=== PATIENT | male | born 1930 | race Caucasian/White ===

== ENCOUNTER → 2016-11-04 | Outpatient (CLI) | payer MEDICARE, OTHER ==
[~2016-11-04] MED LIST: COZA50TA PO; HYDR-2768 PO; PRED5TAB PO; SIMV20TA PO; TAB-TAB PO; TAMS0.4C67 PO; ULTR50TA PO
[2016-11-04 09:11] LABS: HEMATOCRIT 38.2 % (39.0-51.0); MEAN CELL VOLUME 105.7 FL (80.0-100.0); MEAN CORPUSCULAR HEMOGLOBIN 35.9 PG (27.0-34.0); MEAN CORPUSCULAR HGB CONC 33.9 % (32.0-36.0); PLATELET COUNT 198 TH/MM3 (150-450); RED BLOOD COUNT 3.61 MIL/MM3 (4.50-5.90); RED CELL DISTRIBUTION WIDTH 13.5 % (11.6-17.2); REVIEW FLAG FINAL
[2016-11-04 09:44] LABS: WESTERGREN SEDIMENTATION RATE 10 mm/hr (0-20)
[2016-11-04 09:58] LABS: ALKALINE PHOSPHATASE 63 U/L (45-117); ALT (GPT) 38 U/L (12-78); ANION GAP 9 MEQ/L (5-15); AST (GOT) 30 U/L (15-37); BICARBONATE 30.9 MEQ/L (21.0-32.0); BLOOD UREA NITROGEN 13 MG/DL (7-18); CHLORIDE 103 MEQ/L (98-107); GLOMERULAR FILTRATION RATE 79 ML/MIN (>89); GLUCOSE,FASTING 88 MG/DL (74-99); LDL CHOLESTEROL 51 MG/DL (0-99); LDL CHOLESTEROL DIRECT 67 MG/DL (0-99); SODIUM (NA) 143 MEQ/L (136-145); TOTAL BILIRUBIN ADULT 0.4 MG/DL (0.2-1.0)
== END ==
LOC: PLAB 07:29
PROVIDERS: ATTEND Family Medicine
DX: R53.83 Other fatigue (principal); E78.2 Mixed hyperlipidemia; M06.9 Rheumatoid arthritis, unspecified; I10 Essential (primary) hypertension
CPT/HCPCS: 36415; 80053; 80061; 83721; 84443; 85027; 85652

== ENCOUNTER → 2017-02-01 | Outpatient (CLI) | payer MEDICARE, OTHER ==
[2017-02-01 09:45] LABS: HEMATOCRIT 39.6 % (39.0-51.0); MEAN CELL VOLUME 105.9 FL (80.0-100.0); MEAN CORPUSCULAR HEMOGLOBIN 35.1 PG (27.0-34.0); MEAN CORPUSCULAR HGB CONC 33.1 % (32.0-36.0); PLATELET COUNT 181 TH/MM3 (150-450); RED BLOOD COUNT 3.74 MIL/MM3 (4.50-5.90); RED CELL DISTRIBUTION WIDTH 13.2 % (11.6-17.2); REVIEW FLAG FINAL; WHITE BLOOD COUNT 6.2 TH/MM3 (4.0-11.0)
[2017-02-01 09:54] LABS: ANION GAP 8 MEQ/L (5-15); AST (GOT) 31 U/L (15-37); BICARBONATE 31.1 MEQ/L (21.0-32.0); BLOOD UREA NITROGEN 15 MG/DL (7-18); CHLORIDE 102 MEQ/L (98-107); GLOMERULAR FILTRATION RATE 93 ML/MIN (>89); GLUCOSE,FASTING 94 MG/DL (74-99); SODIUM (NA) 141 MEQ/L (136-145)
[2017-02-01 09:59] LABS: ALKALINE PHOSPHATASE 67 U/L (45-117); ALT (GPT) 44 U/L (12-78); HDL CHOLESTEROL 65.7 MG/DL (40.0-60.0); LDL CHOLESTEROL 58 MG/DL (0-99); LDL CHOLESTEROL DIRECT 63 MG/DL (0-99); TOTAL BILIRUBIN ADULT 0.7 MG/DL (0.2-1.0)
[2017-02-01 10:26] LABS: WESTERGREN SEDIMENTATION RATE 22 mm/hr (0-20)
[2017-02-01 16:48] LABS: HEMOGLOBIN A1a 1.1 %; HEMOGLOBIN A1b 0.9 %; HEMOGLOBIN Ao 84.9 %; HEMOGLOBIN F 1.4 %; HEMOGLOBIN LA1C 1.9 %; HEMOGLOBIN P3 3.6 %
== END ==
LOC: PLAB 07:52
PROVIDERS: ATTEND Family Medicine
DX: E78.2 Mixed hyperlipidemia (principal); I10 Essential (primary) hypertension; R73.01 Impaired fasting glucose; M06.9 Rheumatoid arthritis, unspecified
CPT/HCPCS: 36415; 80053; 80061; 83036; 83721; 85027; 85652

== ENCOUNTER → 2017-05-05 | Outpatient (CLI) | payer MEDICARE, OTHER ==
[2017-05-05 09:45] LABS: HEMATOCRIT 38.7 % (39.0-51.0); MEAN CELL VOLUME 108.1 FL (80.0-100.0); MEAN CORPUSCULAR HEMOGLOBIN 36.4 PG (27.0-34.0); MEAN CORPUSCULAR HGB CONC 33.7 % (32.0-36.0); PLATELET COUNT 187 TH/MM3 (150-450); RED BLOOD COUNT 3.58 MIL/MM3 (4.50-5.90); RED CELL DISTRIBUTION WIDTH 13.1 % (11.6-17.2); REVIEW FLAG FINAL; WHITE BLOOD COUNT 7.3 TH/MM3 (4.0-11.0)
[2017-05-05 10:04] LABS: ANION GAP 6 MEQ/L (5-15); AST (GOT) 24 U/L (15-37); BLOOD UREA NITROGEN 23 MG/DL (7-18); CHLORIDE 101 MEQ/L (98-107); GLOMERULAR FILTRATION RATE 90 ML/MIN (>89); GLUCOSE,FASTING 86 MG/DL (74-99); POTASSIUM 3.7 MEQ/L (3.5-5.1); SODIUM (NA) 138 MEQ/L (136-145)
[2017-05-05 10:09] LABS: ALKALINE PHOSPHATASE 63 U/L (45-117); ALT (GPT) 37 U/L (12-78); LDL CHOLESTEROL 64 MG/DL (0-99); LDL CHOLESTEROL DIRECT 75 MG/DL (0-99); TOTAL BILIRUBIN ADULT 0.5 MG/DL (0.2-1.0); WESTERGREN SEDIMENTATION RATE 16 mm/hr (0-20)
== END ==
LOC: PLAB 07:35
PROVIDERS: ATTEND Family Medicine
DX: E78.2 Mixed hyperlipidemia (principal); I10 Essential (primary) hypertension
CPT/HCPCS: 36415; 80053; 80061; 83721; 85027; 85652

== ENCOUNTER → 2017-07-27 | Outpatient (CLI) | payer MEDICARE, OTHER ==
[~2017-07-27] MED LIST changes: -HYDR-2768 PO; +HYDR25TA5 PO; +META48.53 PO; +METH2.5T PO; +MULTTAB67 PO; -SIMV20TA PO; -TAB-TAB PO; -TAMS0.4C67 PO; +TAMS5CAP PO; +TRAM50TA PO; -ULTR50TA PO; +VISI0.053 EACH EYE; +ZOCO20TA PO
[2017-07-27 09:25] LABS: MEAN CELL VOLUME 107.4 FL (80.0-100.0); MEAN CORPUSCULAR HGB CONC 33.5 % (32.0-36.0); PLATELET COUNT 214 TH/MM3 (150-450); RED BLOOD COUNT 3.63 MIL/MM3 (4.50-5.90); RED CELL DISTRIBUTION WIDTH 13.6 % (11.6-17.2); REVIEW FLAG FINAL; WHITE BLOOD COUNT 6.6 TH/MM3 (4.0-11.0)
[2017-07-27 09:41] LABS: ANION GAP 6 MEQ/L (5-15); AST (GOT) 37 U/L (15-37); BICARBONATE 30.8 MEQ/L (21.0-32.0); BLOOD UREA NITROGEN 20 MG/DL (7-18); CHLORIDE 104 MEQ/L (98-107); GLOMERULAR FILTRATION RATE 83 ML/MIN (>89); GLUCOSE,FASTING 89 MG/DL (74-99); POTASSIUM 3.6 MEQ/L (3.5-5.1); SODIUM (NA) 141 MEQ/L (136-145)
[2017-07-27 09:46] LABS: ALKALINE PHOSPHATASE 62 U/L (45-117); ALT (GPT) 43 U/L (12-78); HDL CHOLESTEROL 74.4 MG/DL (40.0-60.0); LDL CHOLESTEROL 55 MG/DL (0-99); LDL CHOLESTEROL DIRECT 75 MG/DL (0-99); TOTAL BILIRUBIN ADULT 0.6 MG/DL (0.2-1.0)
[2017-07-27 10:02] LABS: WESTERGREN SEDIMENTATION RATE 9 mm/hr (0-20)
== END ==
LOC: PLAB 07:32
PROVIDERS: ATTEND Family Medicine
DX: E78.5 Hyperlipidemia, unspecified (principal); I10 Essential (primary) hypertension; M06.9 Rheumatoid arthritis, unspecified
CPT/HCPCS: 36415; 80053; 80061; 83721; 85027; 85652

== ENCOUNTER → 2017-10-27 | Outpatient (CLI) | payer MEDICARE, OTHER ==
[2017-10-27 09:59] LABS: HEMATOCRIT 38.2 % (39.0-51.0); HEMOGLOBIN 13.4 GM/DL (13.0-17.0); MEAN CORPUSCULAR HEMOGLOBIN 36.8 PG (27.0-34.0); MEAN PLATELET VOLUME 7.6 FL (7.0-11.0); PLATELET COUNT 218 TH/MM3 (150-450); RED BLOOD COUNT 3.64 MIL/MM3 (4.50-5.90); RED CELL DISTRIBUTION WIDTH 13.8 % (11.6-17.2); WHITE BLOOD COUNT 6.5 TH/MM3 (4.0-11.0)
[2017-10-27 10:02] LABS: ALBUMIN 3.8 GM/DL (3.4-5.0); AST (GOT) 41 U/L (15-37); BICARBONATE 29.8 MEQ/L (21.0-32.0); BLOOD UREA NITROGEN 18 MG/DL (7-18); CALCIUM 9.3 MG/DL (8.5-10.1); CHLORIDE 103 MEQ/L (98-107); CREATININE 0.84 MG/DL (0.60-1.30); GLOMERULAR FILTRATION RATE 87 ML/MIN (>89); GLUCOSE,FASTING 90 MG/DL (74-99); SODIUM (NA) 142 MEQ/L (136-145)
[2017-10-27 10:03] LABS: ALT (GPT) 50 U/L (12-78); CHOLESTEROL 162 MG/DL (120-200); TRIGLYCERIDES 92 MG/DL (42-150)
[2017-10-27 10:05] LABS: ALKALINE PHOSPHATASE 63 U/L (45-117); CHOLESTEROL/ HDL RATIO 2.07 RATIO; LDL CHOLESTEROL 66 MG/DL (0-99); LDL CHOLESTEROL DIRECT 76 MG/DL (0-99); TOTAL BILIRUBIN ADULT 0.4 MG/DL (0.2-1.0); TOTAL PROTEIN 6.7 GM/DL (6.4-8.2)
[2017-10-27 10:30] LABS: WESTERGREN SEDIMENTATION RATE 13 mm/hr (0-20)
== END ==
LOC: PLAB 07:37
PROVIDERS: ATTEND Family Medicine
DX: E78.2 Mixed hyperlipidemia (principal); I10 Essential (primary) hypertension; M06.9 Rheumatoid arthritis, unspecified
CPT/HCPCS: 36415; 80053; 80061; 83721; 85027; 85652

== ENCOUNTER → 2018-01-27 | Outpatient (CLI) | payer MEDICARE, OTHER ==
[2018-01-27 10:07] LABS: HEMATOCRIT 41.3 % (39.0-51.0); HEMOGLOBIN 13.7 GM/DL (13.0-17.0); MEAN CELL VOLUME 106.3 FL (80.0-100.0); MEAN CORPUSCULAR HEMOGLOBIN 35.3 PG (27.0-34.0); MEAN CORPUSCULAR HGB CONC 33.3 % (32.0-36.0); MEAN PLATELET VOLUME 8.4 FL (7.0-11.0); PLATELET COUNT 189 TH/MM3 (150-450); RED BLOOD COUNT 3.89 MIL/MM3 (4.50-5.90); RED CELL DISTRIBUTION WIDTH 13.6 % (11.6-17.2); WHITE BLOOD COUNT 6.9 TH/MM3 (4.0-11.0)
[2018-01-27 10:15] LABS: AST (GOT) 33 U/L (15-37); BICARBONATE 27.3 MEQ/L (21.0-32.0); BLOOD UREA NITROGEN 23 MG/DL (7-18); CALCIUM 9.4 MG/DL (8.5-10.1); CHLORIDE 105 MEQ/L (98-107); CREATININE 0.92 MG/DL (0.60-1.30); GLOMERULAR FILTRATION RATE 78 ML/MIN (>89); GLUCOSE,FASTING 90 MG/DL (74-99); SODIUM (NA) 144 MEQ/L (136-145)
[2018-01-27 10:16] LABS: ALT (GPT) 38 U/L (12-78); CHOLESTEROL 163 MG/DL (120-200); TRIGLYCERIDES 114 MG/DL (42-150)
[2018-01-27 10:26] LABS: ALKALINE PHOSPHATASE 58 U/L (45-117); CHOLESTEROL/ HDL RATIO 2.43 RATIO; LDL CHOLESTEROL 73 MG/DL (0-99); LDL CHOLESTEROL DIRECT 93 MG/DL (0-99); TOTAL BILIRUBIN ADULT 0.4 MG/DL (0.2-1.0); TOTAL PROTEIN 6.9 GM/DL (6.4-8.2)
[2018-01-27 10:55] LABS: WESTERGREN SEDIMENTATION RATE 8 mm/hr (0-20)
[2018-01-27 16:49] LABS: HEMOGLOBIN A1C 5.7 % (4.3-6.0)
== END ==
LOC: PLAB 07:25
PROVIDERS: ATTEND Family Medicine
DX: E78.2 Mixed hyperlipidemia (principal); I10 Essential (primary) hypertension; E03.8 Other specified hypothyroidism; R73.01 Impaired fasting glucose; M06.9 Rheumatoid arthritis, unspecified
CPT/HCPCS: 36415; 80053; 80061; 83036; 83721; 84443; 85027; 85652